=== PATIENT | female | born 1935 | race Caucasian/White ===

== ENCOUNTER 2016-09-09 18:52 | Emergency (ER) | payer OTHER, MEDICARE ==
[2016-09-09 19:09] VITALS: TEMP 97.9
[2016-09-09] MEDS ORDERED: IBUPROFEN 600 MG TAB PO ONE (19:23)
[2016-09-09] MEDS ORDERED: IBUPROFEN 200 MG TAB PO ONE (19:25)
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
[2016-09-09] MEDS ORDERED: IOPAMIDOL (ISOVUE-300) 50 ML VIAL IV ONE (20:45)
[2016-09-09 21:46] VITALS: BP 151/79; PULSE 64; RESP 20; O2SAT 93
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
[2016-09-09] MEDS ORDERED: HYDROCOD/APAP 5/325 PREPACK#6 BTL TAKEHOME ONE (22:17)
== END 2016-09-09 22:39 | disposition home or self-care (01) ==
DX: S20.219A Contusion of unspecified front wall of thorax, initial encounter (principal); S70.01XA Contusion of right hip, initial encounter; S82.301A Unspecified fracture of lower end of right tibia, initial encounter for closed fracture; I10 Essential (primary) hypertension; V49.40XA Driver injured in collision with unspecified motor vehicles in traffic accident, initial encounter; Y92.410 Unspecified street and highway as the place of occurrence of the external cause; Y99.8 Other external cause status; Y93.89 Activity, other specified
CPT/HCPCS: 82947-QW; Q9967